=== PATIENT | female | born 1955 | race African-American/Black ===

== ENCOUNTER 2016-11-01 09:54 | Day surgery (SDC) | payer OTHER ==
--- NOTE | ~2016-11-01 | EGD ---
EGD REPORT [facility] [address] [place] [address] NAME: SHERIE QUINTERO : 57 STATUS : REG [facility]#: [id number] AGE: 60 ADM/REG DATE : 11/01/16 MR#: [id number] REPORT SERV DATE: 11/01/16 DICTATED BY: ZEFERINO PINA III DATE: 11/01/16 REPORT STATUS : Draft [facility] DATE: 11/01/16 [facility] Patient Name: Sherie Quintero Date of : 1955 Attending MD: ZEFERINO PINA III, MD Procedure Date No Time: 11/01/2016 Procedure: Colonoscopy Indications: Screening for colorectal malignant neoplasm Medicines: Propofol per Anesthesia Complications: No immediate complications. Procedure: Pre-Anesthesia Assessment: - ASA Grade Assessment: II - A patient with mild systemic disease. After I obtained informed consent, the scope was passed under direct vision. Throughout the procedure, the patient's blood pressure, pulse, and oxygen saturations were monitored continuously. The PCF [id number] was introduced through the anus and advanced to the cecum, identified by appendiceal orifice and ileocecal valve. The colonoscopy was performed with ease. The patient tolerated the procedure well. The quality of the bowel preparation was good. Findings: Two sessile polyps were found in the transverse colon. The polyps were 5 to 8 mm in size. These polyps were removed with a cold snare. Resection and retrieval were complete. These polyps were removed with a cold biopsy forceps. Resection and retrieval were complete. Internal hemorrhoids were found during retroflexion. Impression: - Two 5 to 8 mm polyps in the transverse colon. Resected and retrieved. - Internal hemorrhoids. Recommendation: - Patient has a contact number available for emergencies. The signs and symptoms of potential delayed complications were discussed with the patient. Return to normal activities tomorrow. Written discharge instructions were provided to the patient. - Discharge patient to home. - Return to previous diet. - Continue present medications. - Await pathology results. Procedure Code(s): --- Professional --- EGD REPORT [place] [address] [place]. [address] NAME: SHERIE QUINTERO : [birth year] STATUS : REG [facility]#: [id number] AGE: 60 ADM/REG DATE : 11/01/16 MR#: [id number] REPORT SERV DATE: 11/01/16 DICTATED BY: ZEFERINO PINA III DATE: 11/01/16 REPORT STATUS : Draft TRANSCRIBED BY: [employer] DATE: 11/01/16 [id number], Colonoscopy, flexible, proximal to splenic flexure; with removal of tumor(s), polyp(s), or other lesion(s) by snare technique Diagnosis Code(s): --- Professional --- D12.3, Benign neoplasm of transverse colon K64.8, Other hemorrhoids Z12.11, Encounter for screening for malignant neoplasm of colon CPT copyright 2013 [employer]. All rights reserved. The codes documented in this report are preliminary and upon pre coder review may be revised to meet current compliance requirements. ZEFERINO PINA III, MD 11/01/2016 1:02 PM This report has been signed electronically. Number of Addenda: 0 Note Initiated On: 11/01/2016 12:42 PM [facility] [place] [address]
[~2016-11-01 09:54] MED LIST: AMB5 PO; CYMBALTA60 PO; EZFE 200200 MG PO; MIRALAX POWDER1 PKT PO; NEUR300 PO; NORV5 PO; PAIN COMPOUND TD; PERCOCET 10/3251 TAB PO; SKELAXIN8 PO; VITD PO; ZESTRIL20 MG PO
== END 2016-11-01 23:59 | disposition home or self-care (01) ==
LOC: DMU 09:54
PROVIDERS: Internal Medicine Gastroenterology
PROC: 0DBL8ZZ Excision of Transverse Colon, Via Natural or Artificial Opening Endoscopic (ICD-10-PCS; principal; 2016-11-01 11:00)
DX: Z12.11 Encounter for screening for malignant neoplasm of colon (principal); D12.3 Benign neoplasm of transverse colon; K64.8 Other hemorrhoids; I10 Essential (primary) hypertension; F41.9 Anxiety disorder, unspecified; G89.29 Other chronic pain; Z88.1 Allergy status to other antibiotic agents; Z87.828 Personal history of other (healed) physical injury and trauma; Z79.891 Long term (current) use of opiate analgesic; Z79.899 Other long term (current) drug therapy
CPT/HCPCS: 88305